=== PATIENT | male | born 1955 | race Caucasian/White ===

== ENCOUNTER 2017-04-12 22:22 | Emergency (ER) | payer SELFPAY ==
[~2017-04-12] VITALS: Ht 167.6 cm; Wt 77.1 kg
[2017-04-12 22:30] VITALS: BP 155/79
--- NOTE | 2017-04-12 22:40 | PHYS DOC ---
Adult General Chief Complaint Chief Complaint: LACERATION/AVULSION HPI HPI Patient is a 61 year old male presents to the ED complaining of finger injury x 1 hour. States he was using a saw and accidentally cut off the part of his second and 3rd digits. Describes the pain as sharp. Rates the pain as 9/10. Denies fever, LOC, vision changes, nausea/vomiting, syncope, chest pain or shortness of breath. Review of Systems Review of Systems Constitutional: Denies fever or chills [] Eyes: Denies change in visual acuity, redness, or eye pain [] HENT: Denies nasal congestion or sore throat [] Respiratory: Denies cough or shortness of breath [] Cardiovascular: No additional information not addressed in HPI [] GI: Denies abdominal pain, nausea, vomiting, bloody stools or diarrhea [] : Denies dysuria or hematuria [] Musculoskeletal: Denies back pain. Complains of left finger pain [] Integument: Denies rash or skin lesions [] Neurologic: Denies headache, focal weakness or sensory changes [] Endocrine: Denies polyuria or polydipsia [] Current Medications Current Medications Current Medications Medications (Trade) Dose Ordered Sig/Lenin Start Time Stop Time Status Last Admin Dose Admin Acetaminophen/ Hydrocodone Bitart (Lortab 10/325) 1 tab 1X ONCE 04/13/17 00:15 04/13/17 00:16 DC 04/13/17 00:19 1 TAB Cefazolin Sodium (Ancef Im) 0.5 gm 1X ONCE 04/12/17 22:45 04/12/17 22:46 DC 04/12/17 22:55 0.5 GM Diphtheria/ Tetanus/Acell Pertussis (Boostrix) 0.5 ml ONCE ONCE 04/12/17 22:45 04/12/17 22:46 DC 04/12/17 22:51 0.5 ML Lidocaine/Sodium Bicarbonate (Buffered Lidocaine 1%) 20 ml 1X ONCE 04/12/17 22:45 04/12/17 22:46 DC 04/12/17 22:51 20 ML Allergies Allergies Allergies Coded Allergies Type Severity Reaction Last Updated Verified No Known Drug Allergies 04/12/17 No Physical Exam Physical Exam Constitutional: Well developed, well nourished, no acute distress, non-toxic appearance. [] HENT: Normocephalic, atraumatic, bilateral external ears normal, oropharynx moist, no oral exudates, nose normal. [] Eyes: PERRLA, EOMI, conjunctiva normal, no discharge. [] Neck: Normal range of motion, no tenderness, supple, no stridor. [] Cardiovascular:Heart rate regular rhythm, no murmur [] Lungs & Thorax: Bilateral breath sounds clear to auscultation [] Abdomen: Bowel sounds normal, soft, no tenderness, no masses, no pulsatile masses. [] Skin: Warm, dry, no erythema, no rash. [] Back: No tenderness, no CVA tenderness. [] Extremities: LEFT 2ND AND 3RD DISTAL AVULSION TO VOLAR SIDE OF DISTAL FINGER PADS. NAILBED INTACT. no cyanosis, no clubbing, ROM intact, no edema. [] Neurologic: Alert and oriented X 3, normal motor function, normal sensory function, no focal deficits noted. [] Psychologic: Affect normal, judgement normal, mood normal. [] Current Patient Data Vital Signs Vital Signs Date Time Temp Pulse Resp B/P (MAP) Pulse Ox O2 Delivery O2 Flow Rate FiO2 04/13/17 00:19 18 100 Room Air 04/12/17 22:30 98.6 80 98.6 EKG EKG [] Radiology/Procedures Radiology/Procedures PROCEDURE: FINGER(S) LEFT Left hand, 3 views, 04/12/2007: History: Finger lacerations There is soft tissue deformity at the tips of the second and third fingers. There is radiopaque debris related to the fingernails. No underlying fracture is identified. There are moderate degenerative changes at scattered interphalangeal joints. There is a tiny radiopaque foreign body projected over the soft tissues of the index finger adjacent to the proximal phalanx, of indeterminate age. IMPRESSION: No acute bony abnormality is detected.[] Course & Med Decision Making Course & Med Decision Making Pertinent Labs and Imaging studies reviewed. (See chart for details) []Discussed imaging findings with patient. Wounds copiously irrigated, cleaned and dressed in sterile fashion. Patient has no repairable laceration. Tetanus updated. Ancef given in ED. Will discharge with Keflex. Discussed case with transfer team, Jeremie. Orthopedics suggests patient be placed in sterile dressings and follow-up with Dr. Mcgovern, hand surgeon, tomorrow at . States they will see him tomorrow he needs to call first thing tomorrow morning. [phone]. Provided contact information and education to patient and family for immediate follow-up tomorrow. Discussed the importance of follow- up. Discussed reasons to return to the ED. Patient understands and agrees with plan. Family at bedside. Dragon Disclaimer Dragon Disclaimer This electronic medical record was generated, in whole or in part, using a voice recognition dictation system. Departure Departure Impression: Primary Impression: Finger avulsion Additional Impression: Finger injury Disposition: HOME, SELF-CARE Condition: STABLE Referrals: NON,STAFF (PCP) Patient Instructions: Finger Avulsion Additional Instructions: Dr. Mcgovern tomorrow at [phone] [facility] [address] [place] [address] Scripts Cephalexin (KEFLEX) 500 Mg Capsule 1 CAP PO TID, #30 CAP Prov: JERAMY HOUGH 04/13/17 Hydrocodone/Apap 5-325 (NORCO 5-325 TABLET) 1 Each Tablet 1 TAB PO TID, #12 TAB Prov: JERAMY HOUGH 04/13/17 Problem Qualifiers JERAMY HOUGH Apr 12, 2017 22:40
[2017-04-12] MEDS ORDERED: ceFAZolin IM 1 GM VIAL IM ONE (22:45)
[2017-04-12] MEDS ORDERED: DIPHTH,PERTUSS(ACELL),TET TOX 0.5 ML DISP.SYRIN. VAX IM ONE (22:45)
[2017-04-12] MEDS ORDERED: LIDOCAINE 1% / SOD BICARB 8.4% 20 ML VIAL. IJ ONE (22:45)
[2017-04-13] MEDS ORDERED: HYDROcodone/APAP 10/325 1 TAB TABLET PO ONE (00:15)
[2017-04-13] MEDS ORDERED: HYDR-971 PO (00:33)
[2017-04-13] MEDS ORDERED: CEPH-264 PO (00:33)
--- NOTE | 2017-04-13 08:09 | RAD ---
Left hand, 3 views, 04/12/2007: History: Finger lacerations There is soft tissue deformity at the tips of the second and third fingers. There is radiopaque debris related to the fingernails. No underlying fracture is identified. There are moderate degenerative changes at scattered interphalangeal joints. There is a tiny radiopaque foreign body projected over the soft tissues of the index finger adjacent to the proximal phalanx, of indeterminate age. IMPRESSION: No acute bony abnormality is detected.
== END 2017-04-13 00:45 | disposition home or self-care (01) ==
LOC: ER 22:22
DX: S61.301A Unspecified open wound of left index finger with damage to nail, initial encounter (principal); S61.303A Unspecified open wound of left middle finger with damage to nail, initial encounter; W27.0XXA Contact with workbench tool, initial encounter; Y93.89 Activity, other specified; Y92.89 Other specified places as the place of occurrence of the external cause; Y99.8 Other external cause status
CPT/HCPCS: 73140; 90471; 90715; 96372; 99284; J0690

== ENCOUNTER 2020-06-15 17:07 | Emergency (ER) | payer MEDICARE ==
[~2020-06-15] VITALS: Ht 172.7 cm; Wt 82.0 kg
[~2020-06-15 17:07] MED LIST: ALBU2.5V5 NEB; ALBU2.5V8 INH; CEPH-264 PO; HYDR-3164 PO; PRED50TA PO
[2020-06-15 17:15] VITALS: BP 127/75
--- NOTE | 2020-06-15 17:58 | PHYS DOC ---
Past Medical History Past Medical History: Bronchitis, COPD ([employer]IM[employer]LY IN[employer]TE [employer]) Past Surgical History: Tonsillectomy, Other Additional Past Surgical Histo: JAW SURG (KIM[employer]TE [employer]) Smoking Status: Current Every Day Smoker Alcohol Use: Rarely Drug Use: Methamphetamine (KIM[employer]LY [employer]) General Adult EDM: Chief Complaint: RINGING IN EARS HPI: HPI: Patient is a 64 year old male who presents with hissing in his ears times years. 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 He states that he is has hearing loss from this. States he is never seen a doctor for any of this. He states that he is a smoker. He states he had shortness of breath cough more so lately and is having to use his 's albuterol inhaler because he is out. He states he also has some nasal congestion. Patient has a history of COPD, bronchitis and is a smoker. (KIM[employer]) Review of Systems: Review of Systems: Constitutional: Denies fever or chills. [] Eyes: Denies change in visual acuity. [] HENT: Denies nasal congestion or sore throat. [] Respiratory: Denies cough or shortness of breath. [] Cardiovascular: Denies chest pain or edema. [] GI: Denies abdominal pain, nausea, vomiting, bloody stools or diarrhea. [] : Denies dysuria. [] Musculoskeletal: Denies back pain or joint pain. [] Integument: Denies rash. [] Neurologic: Denies headache, focal weakness or sensory changes. [] Endocrine: Denies polyuria or polydipsia. [] Lymphatic: Denies swollen glands. [] Psychiatric: Denies depression or anxiety. [] ([employer]) Heart Score: Risk Factors: Risk Factors: DM, Current or recent (<one month) smoker, HTN, HLP, family history of CAD, obesity. Risk Scores: Score 0 - 3: 2.5% MACE over next 6 weeks - Discharge Home Score 4 - 6: 20.3% MACE over next 6 weeks - Admit for Clinical Observation Score 7 - 10: 72.7% MACE over next 6 weeks - Early Invasive Strategies (KIM[employer]) Allergies: Allergies: Allergies Coded Allergies Type Severity Reaction Last Updated Verified No Known Drug Allergies 04/12/17 No (KIMBERLY INFANTE APRN) Physical Exam: PE: Constitutional: Well developed, well nourished, no acute distress, non-toxic appearance. [] HENT: Normocephalic, atraumatic, bilateral external ears normal, oropharynx moist, no oral exudates, nose normal. [] Eyes: PERRLA, EOMI, conjunctiva normal, no discharge. [] Neck: Normal range of motion, no tenderness, supple, no stridor. [] Cardiovascular:Heart rate regular rhythm, no murmur [] Lungs & Thorax: Bilateral upper breath sounds respiratory expiratory wheezing in lower lobes diminished to auscultation [] Abdomen: Bowel sounds normal, soft, no tenderness, no masses, no pulsatile masses. [] Skin: Warm, dry, no erythema, no rash. [] Back: No tenderness, no CVA tenderness. [] Extremities: No tenderness, no cyanosis, no clubbing, ROM intact, no edema. [] Neurologic: Alert and oriented X 3, normal motor function, normal sensory function, no focal deficits noted. [] Psychologic: Affect normal, judgement normal, mood normal. [] (KIMBERLY INFANTE APRN) Current Patient Data: Vital Signs: Vital Signs Date Time Temp Pulse Resp B/P (MAP) Pulse Ox O2 Delivery O2 Flow Rate FiO2 06/15/20 17:15 97.6 96 16 127/75 (92) 97 Room Air 97.6 (KIMBERLY INFANTE APRN) EKG: EKG: [] (KIMBERLY INFANTE APRN) Radiology/Procedures: Radiology/Procedures: [] Impression: [facility] [address] [place] [address] IMAGING REPORT Signed PATIENT: THOMAS MATUTE ACCOUNT: [id number] : 1955 LOCATION: ER AGE: 64 SEX: M EXAM STATUS: REG ER ORD. PHYSICIAN: KIMBERLY INFANTE APRN REASON: soa PROCEDURE: PORTABLE CHEST 1V Exam performed: One view chest. Indication: Reason: soa / Spl. Instructions: / History: Date of Service: 06/15/2020 6:02 PM Comparison: One view chest from 04/22/2017. Single AP upright portable view chest findings: Cardiomediastinal silhouette is within limits of normal. Prominent interstitial markings are seen in both lungs. No acute infiltrates, effusion or pneumothorax is detected. The bony structures are normal. Impression: No acute cardiopulmonary process is detected. Electronically signed by: Janett Davis MD (06/15/2020 6:21 PM) [facility] DICTATED and SIGNED BY: JANETT DAVIS MD DATE: 06/15/20 [id number] 0 (KIMBERLY INFANTE APRN) Course & Med Decision Making: Course & Med Decision Making Pertinent Labs and Imaging studies reviewed. (See chart for details) COVID-19 CRITERIA: The patient was evaluated during the global COVID-19 pandemic, and that diagnosis was suspected/considered upon their initial pr esentation. Their evaluation, treatment and testing was consistent with current guidelines for patients who present with complaints or symptoms that may be related to COVID-19. See HPI. Alert and oriented x4. Ambulatory with steady gait. Speaks in full clear sentences. Bilateral eardrums are foggy. Patient has sinus congestion. No sinus tenderness with palpation. Lungs have inspiratory expiratory wheezing and a cough. Patient is given prednisone, meclizine, Zyrtec in the ED. I will send the patient home with a Medrol Dosepak, ProAir inhaler, Zyrtec. Patient is satting at 97% on room air. He is in no respiratory distress. X-ray shows no acute findings. 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 I was available for consultation as needed during the patient's visit in the emergency department. I agree with the clinical impression, plans and disposition. (SHAUNA MAYNARD MD) Walker Disclaimer: Dragdouglas Disclaimer: This electronic medical record was generated, in whole or in part, using a voice recognition dictation system. (KIMBERLY INFANTE APRN) COVID-19 Patient Risks: Age 65 or older: Yes Sign of co-morbidity: Yes Exp to person + for COVID: No Exp to PUI: No Travel from affected area: No Lower respiratory symptoms: Yes Fever: No Other: Yes (nasal congestion) (KIMBERLY INFANTE APRN) PPE Use: Full PPE with N95 mask or PAPR: Yes (KIMBERLY INFANTE APRN) Departure Departure Impression: Primary Impression: Person under investigation for COVID-19 Additional Impressions: Cough in adult patient Nasal congestion Wheezing Disposition: DC HOME SELF CARE/HOMELESS Condition: STABLE Referrals: NO PCP (PCP) JELENA FREEMAN MD Patient Instructions: Chronic Obstructive Pulmonary Disease Exacerbation, Smoking Cessation, Tips For Success, Tinnitus Additional Instructions: Follow-up with primary care provider or the ENT I have referred you to. Take medications as prescribed. If you begin having severe shortness of breath or chest pain return to the emergency room. Stop smoking. You have been tested for or diagnosed with COVID-19. It is an infection caused by a new type of coronavirus. COVID-19 will cause cold-like or mild flu symptoms in most. It can cause more severe symptoms like problems breathing in some. There is no treatment for COVID-19. The body will clear the infection over time. Self-care will help to ease discomfort. Steps to Take: Self-Care Rest as needed. Healthy habits may help you feel better. Steps include: Choose healthy foods including fruits and vegetables. Drink water throughout the day. Get plenty of sleep each night. If you smoke, try to quit. It may ease breathing. Avoid alcohol. Keep Others Healthy The virus can spread to others. Droplets are released every time you sneeze or cough. The droplets can get into the mouth, nose, or eyes of people near you and lead to infection. To lower the chances of spreading COVID-19 to others: Stay at home until your doctor has said it is safe to leave. If you tested positive this will mean staying isolated until both of the following are true: At least 7 days have passed since the start of illness. You are free of fever for at least 72 hours without the use of medicine. During this time: - Avoid public areas, events, or transportation. Do not return to work or school until your doctor has said it is safe to do so. - Call ahead if you need to go to a medical center. Let them know you may have COVID-19. It will help them guide you where to go. They may also ask you to wear a facemask when you come to the office. - If you call for emergency medical services, let them know you may have COVID- 19. While at home: - Try to avoid close contact with others. Stay about 6 feet away. - If possible, spend most of your time in a separate room from others. - Use a face mask if you will be in close contact with others such as sharing a room or vehicle. - Have someone wipe down common surfaces in the home. Use household aerobics instructor every day on areas like doorknobs, counters, or sinks. - Cough or sneeze into a tissue. Throw the tissue away right after use. If a tissue is not available, cough or sneeze into your elbow. - Wash your hands often. Wash them after sneezing or coughing. Use soap and water and wash for at least 20 seconds. Alcohol based hand cocoa bean cleaner can be used if soap and water is not available. - Do not prepare food for others. Avoid sharing personal items like forks, spoons, or toothbrushes. - Avoid close contact with pets while you are sick. There is no evidence of the virus passing to pets. This is a safety step until more is known about this virus. Isolation can be frustrating. Social interaction can help. Keep in touch with friends and family through phone and tech options. You can still interact with others in your home, just keep a safe distance of about 6 feet. Follow-up: Your doctors office will check in with you to see if there are any changes in your health. You may be asked to keep track of symptoms to share with them. They will also let you know when you are clear to be in public again. Problems to Look Out For: Contact your doctor if your recovery is not going as you expect. Get emergency care if you have problems such as: - Trouble breathing - Nonstop chest pain or pressure - Changes in awareness, confusion, or problems waking - Lips or face have bluish color - Worsening of symptoms If you think you have an emergency, call for emergency medical services right away. As taken from [facility] Scripts Cetirizine Hcl (ZYRTEC) 10 Mg Tablet 1 TAB PO DAILY, #30 TAB Prov: KIMBERLY INFANTE APRN 06/15/20 Albuterol Sulfate (PROAIR HFA INHALER) 8.5 Gm Hfa.aer.ad 1 PUFF INH PRN Q6HRS PRN for SHORTNESS OF BREATH, #1 INHALER 0 Refills Prov: KIMBERLY INFANTE APRN 06/15/20 Methylprednisolone (MEDROL) 4 Mg Tab.ds.pk 1 PKG PO UD, #1 PKG Prov: KIMBERLY INFANTE APRN 06/15/20 KIMBERLY INFANTE APRN Jun 15, 2020 17:58 SHAUNA MAYNARD MD Jun 15, 2020 18:57
[2020-06-15] MEDS ORDERED: MECLIZINE HCL 12.5 MG TABLET. PO ONE (18:00)
[2020-06-15] MEDS ORDERED: predniSONE 10 MG TABLET PO ONE (18:00)
[2020-06-15] MEDS ORDERED: CETIRIZINE HCL 10 MG TABLET. PO ONE (18:00)
--- NOTE | 2020-06-15 18:23 | RAD ---
Exam performed: One view chest. Indication: Reason: soa / Spl. Instructions: / History: Date of Service: 06/15/2020 6:02 PM Comparison: One view chest from 04/22/2017. Single AP upright portable view chest findings: Cardiomediastinal silhouette is within limits of normal. Prominent interstitial markings are seen in both lungs. No acute infiltrates, effusion or pneumothorax is detected. The bony structures are norm al. Impression: No acute cardiopulmonary process is detected. Electronically signed by: Janett Davis MD (06/15/2020 6:21 PM) [facility]
[2020-06-15] MEDS ORDERED: ALBU2.5V8 INH (18:32)
[2020-06-15] MEDS ORDERED: CETI10TA74 PO (18:32)
[2020-06-15] MEDS ORDERED: METH4TAB2 PO (18:32)
[2020-06-15] MEDS ORDERED: ALBU2.5V5 NEB (19:03)
--- NOTE | 2020-06-17 10:13 | NUR ---
IP: Pt unable to hear over the phone, COVID negative results given to with his permission. Both verbalized understanding.
== END 2020-06-15 19:05 | disposition home or self-care (01) ==
LOC: ER 17:07
DX: R06.02 Shortness of breath (principal); Z20.828 Contact with and (suspected) exposure to other viral communicable diseases; R06.2 Wheezing; R05 Cough; R09.81 Nasal congestion; J44.9 Chronic obstructive pulmonary disease, unspecified; F17.200 Nicotine dependence, unspecified, uncomplicated; F19.90 Other psychoactive substance use, unspecified, uncomplicated; Z90.89 Acquired absence of other organs; Z98.890 Other specified postprocedural states
CPT/HCPCS: 71045; 99284; C9803; J7512; J8597; U0003

== ENCOUNTER 2020-11-17 16:56 | Emergency (ER) | payer MEDICARE ==
[~2020-11-17] VITALS: Ht 172.7 cm; Wt 85.2 kg
[~2020-11-17 16:56] MED LIST changes: +CETI10TA74 PO; +METH4TAB2 PO
[2020-11-17 17:35] VITALS: BP 122/75
--- NOTE | 2020-11-17 20:00 | RAD ---
Study: US RIGHT LOWER EXTREMITY ARTERIAL DUPLEX EVAL Indication: Right thigh pain. Comparison: None. Technique/Findings: Duplex sonographic assessment of the right lower extremity arteries. Triphasic and biphasic waveforms seen throughout. Peak systolic velocity within the proximal superfic ial femoral artery of 142 cm/s drop in 2 61 cm/s at the mid SFA. No significant change in PSV elsewhe re or significantly elevated velocity. Common femoral artery: 100 cm/s Deep femoral artery: 56 cm/s Proximal superficial femoral artery: 142 cm/s Mid superficial femoral artery: 61 cm/s Distal superficial femoral artery: 104 cm/s Popliteal artery: 68 cm/s Proximal LEADITE MAN: 78 cm/s Distal LEADITE MAN: 79 cm/s Peroneal artery: 48 cm/s Anterior tibial artery: 57 cm/s DPA: 35 cm/s Impression: 1. No hemodynamically significant stenosis or occlusion throughout the right lower extremity. 2. Possible mild stenosis of the proximal superficial femoral artery Electronically signed by: CHERY KEARNS MD (11/17/2020 7:58 PM) [facility]
--- NOTE | 2020-11-17 20:01 | RAD ---
STUDY: US DPLX VENOUS EXTREMITY LOWER RT INDICATION: Right thigh pain. DVT. TECHNIQUE: Color-flow and pulsed wave duplex ultrasound with compression of venous structures of the right lower extremity. COMPARISON: None FINDINGS: Duplex ultrasound with compression of the deep venous structures of the right lower extremity from th e common femoral vein through the popliteal vein is negative for DVT. The posterior tibial and peroneal veins are segmentally visualized and patent where seen. Normal veno us waveforms and augmentation are noted throughout. Small right groin lymph node not meeting pathologic criteria based on size. IMPRESSION: No deep venous thrombosis throughout the right lower extremity. Electronically signed by: CHERY KEARNS MD (11/17/2020 7:59 PM) [facility]
--- NOTE | 2020-11-17 20:10 | ED.ADGEN ---
Past Medical History Past Medical History: Bronchitis, COPD Past Surgical History: Tonsillectomy, Other Additional Past Surgical Histo: JAW SURG Smoking Status: Current Every Day Smoker Alcohol Use: Rarely Drug Use: Methamphetamine General Adult EDM: Chief Complaint: LOWER EXT PAIN HPI: HPI: Patient is a 65 year old male who presents emergency department with complaints of pain and swelling to his right leg for the last month. Patient reports they have been using a shovel today 1 day in his yard and he had been stepping onto the shovel with his right foot. He noticed soreness in his leg ever since then but denies any injury or fall. Patient states that his leg has been swollen at times and he has the worst pain just above his right knee and his lower medial thigh. Patient states that the pain radiates up to his groin. He denies any dysuria, hematuria, increased urinary frequency, testicle pain, abdominal pain, nausea, vomiting, diarrhea, numbness, tingling, or weakness. He currently denies any pain. Patient states that the pain is intermittent and typically only occurs when he is standing or walking. He is also noticed that the pain occurs when he moves his foot up and down. When the pain is present he rates it a 10 out of 10. He denies any previous history of DVT or PE. Review of Systems: Review of Systems: Complete ROS is negative unless otherwise noted in HPI. Allergies: Allergies: Allergies Coded Allergies Type Severity Reaction Last Updated Verified No Known Drug Allergies 04/12/17 No Physical Exam: PE: See Above Constitutional: Well developed, well nourished, no acute distress, non-toxic appearance. [] HENT: Normocephalic, atraumatic, bilateral external ears normal, nose normal. [] Eyes: PERRLA, EOMI, conjunctiva normal, no discharge. [] Neck: Normal range of motion, no stridor. [] Cardiovascular:Heart rate regular rhythm Lungs & Thorax: Respirations even and unlabored, no retractions, no respiratory distress Skin: Warm, dry, no erythema, no rash. [] Extremities: RLE: No bony tenderness, no obvious deformity, no clonus, no cyanosis, ROM intact, 1+ edema, sensation intact, 2+ pedal and posterior tibial pulses, negative Cesar's sign Neurologic: Alert and oriented X 3, normal motor, normal sensory, no focal deficits noted. [] Psychologic: Affect normal, judgement normal, mood normal. [] Current Patient Data: Vital Signs: Vital Signs Date Time Temp Pulse Resp B/P (MAP) Pulse Ox O2 Delivery O2 Flow Rate FiO2 11/17/20 17:35 98.2 96 14 122/75 (91) 95 Room Air 98.2 EKG: EKG: [] Heart Score: C/O Chest Pain: No Risk Scores: Score 0 - 3: 2.5% MACE over next 6 weeks - Discharge Home Score 4 - 6: 20.3% MACE over next 6 weeks - Admit for Clinical Observation Score 7 - 10: 72.7% MACE over next 6 weeks - Early Invasive Strategies Radiology/Procedures: Radiology/Procedures: PROCEDURE: VENOUS LOWER EXTREMITY RIGHT STUDY: US DPLX VENOUS EXTREMITY LOWER RT INDICATION: Right thigh pain. DVT. TECHNIQUE: Color-flow and pulsed wave duplex ultrasound with compression of venous structures of the right lower extremity. COMPARISON: None FINDINGS: Duplex ultrasound with compression of the deep venous structures of the right lower extremity from the common femoral vein through the popliteal vein is negative for DVT. The posterior tibial and peroneal veins are segmentally visualized and patent where seen. Normal venous waveforms and augmentation are noted throughout. Small right groin lymph node not meeting pathologic criteria based on size. IMPRESSION: No deep venous thrombosis throughout the right lower extremity. Electronically signed by: CHERY KEARNS MD (11/17/2020 7:59 PM) [facility] PROCEDURE: DUPLEX LOWER EX ARTERIAL RIGHT Study: US RIGHT LOWER EXTREMITY ARTERIAL DUPLEX EVAL Indication: Right thigh pain. Comparison: None. Technique/Findings: Duplex sonographic assessment of the right lower extremity arteries. Triphasic and biphasic waveforms seen throughout. Peak systolic velocity within the proximal superficial femoral artery of 142 cm/s drop in 2 61 cm/s at the mid SFA. No significant change in PSV elsewhere or significantly elevated velocity. Common femoral artery: 100 cm/s Deep femoral artery: 56 cm/s Proximal superficial femoral artery: 142 cm/s Mid superficial femoral artery: 61 cm/s Distal superficial femoral artery: 104 cm/s Popliteal artery: 68 cm/s Proximal BEHAVIORAL HEALTH ASSISTANT: 78 cm/s Distal BEHAVIORAL HEALTH ASSISTANT: 79 cm/s Peroneal artery: 48 cm/s Anterior tibial artery: 57 cm/s DPA: 35 cm/s Impression: 1. No hemodynamically significant stenosis or occlusion throughout the right lower extremity. 2. Possible mild stenosis of the proximal superficial femoral artery Course & Med Decision Making: Course & Med Decision Making Pertinent Labs and Imaging studies reviewed. (See chart for details) [] Walker Disclaimer: Walker Disclaimer: This electronic medical record was generated, in whole or in part, using a voice recognition dictation system. Departure Departure Impression: Primary Impression: Leg cramp Additional Impression: Acute pain of right thigh Disposition: HOME / SELF CARE / HOMELESS Condition: STABLE Referrals: NO PCP (PCP) Patient Instructions: Leg Cramps Additional Instructions: Tylenol or ibuprofen as needed for pain. Follow up with your primary care doctor in 1-2 days, return to the ER if symptoms worsen or fever develops. Problem Qualifiers BAILEY [employer] ASSIST[employer] November 17, 2020 20:10
== END 2020-11-17 20:35 | disposition home or self-care (01) ==
LOC: ER 16:56
DX: R25.2 Cramp and spasm (principal); M79.651 Pain in right thigh; R22.41 Localized swelling, mass and lump, right lower limb; J44.9 Chronic obstructive pulmonary disease, unspecified; F17.200 Nicotine dependence, unspecified, uncomplicated
CPT/HCPCS: 93926; 93971; 99284-25